=== PATIENT | male | born 1950 | race Caucasian/White ===

== ENCOUNTER 2018-10-20 15:19 | Emergency (ER) | payer OTHER ==
[~2018-10-20] VITALS: Ht 167.6 cm; Wt 61.2 kg
[2018-10-21] MEDS ORDERED: CIPRO500 MG PO (07:31)
== END 2018-10-21 12:52 | disposition home or self-care (01) ==
LOC: ER 15:19
DX: E86.0 Dehydration (principal); N39.0 Urinary tract infection, site not specified; B96.89 Other specified bacterial agents as the cause of diseases classified elsewhere; Z98.890 Other specified postprocedural states